=== PATIENT | male | born 2000 ===

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

== ENCOUNTER 2023-05-13 10:31 | Inpatient (IN) | payer BC ==
[~2023-05-13] VITALS: Ht 205.7 cm; Wt 72.6 kg
[~2023-05-13 10:31] MED LIST: ASPI81CH PO
--- NOTE | 2023-05-13 17:35 | NUR ---
PT ARRIVED TO 231 FROM ED ON GURNEY. TRANSFERRED W/SBA TO BED. MOM BEDSIDE. THORAVENT TO L AXIALLARY AREA. PLACED TO WALL SUCTION PER ORDERS. NO CREPITUS NOTED AT THIS TIME. LUNG SOUNDS IN ALL LOBES. PT HAS 2L 02 NC TO MOUTH FOR COMFORT. HRR. ORIENTED TO USE OF CALL LIGHT.
[2023-05-13 17:44] VITALS: BP 112/88
[2023-05-14 00:30] VITALS: BP 117/79
[2023-05-14 04:23] VITALS: BP 112/90
--- NOTE | 2023-05-14 05:14 | NUR ---
PT ALERT, O X 4. MILD PAIN RELIEVED BY ANALGESIC. VSS, RESPS EVEN & UNLABORED, CT IN SITU TO LLL. BUBBLING CEASED OVERNIGHT, PATENT. CV STABLE, PULSES STRONG, PERFUSION BRISK, WARM & DRY TO TOUCH. ABD SOFT & FLAT, BS ACTIVE. VDG PER URINAL. SKIN CLEAR WITH OLD MIDLINE SCAR. PIV TO RT ACF, FLUSHES WELL. MOTHER AT BEDSIDE ON ADMISSION. LEFT FOR THE NIGHT.
[2023-05-14 07:20] VITALS: BP 105/81
[2023-05-14 14:36] VITALS: BP 116/76
--- NOTE | 2023-05-14 16:36 | NUR ---
CHEST TUBE TO WATER SEAL AT THIS TIME PER ORDER
--- NOTE | 2023-05-14 17:10 | NUR ---
SUMMARY: ADMIT FOR PNEUMOTHORAX. NO ACUTE CHANGE TODAY. VSS, A/O, SP02 STABLE ON RA. BREATHS ARE EVEN AND UNLABORED. CT SITE IS CDI, NO NEW DRAINAGE TODAY. PT IS VOIDING AND USES CALL LIGHT. CT TO WATER SEAL, PT EDUCATED. PLAN IS FOR REPEAT CHEST X RAY IN THE MORNING.
[2023-05-14 19:18] VITALS: BP 114/74
[2023-05-15 03:16] VITALS: BP 128/79
--- NOTE | 2023-05-15 04:38 | NUR ---
SHIFT SUMMARY ALERT AND COOPERATIVE, SLEPT WELL OVERNIGHT. MINIMAL DISCOMFORT, RELIEVED BY ANALGESIC. VSS, AFEBRILE. GOOD AIR ENTRY THROUGH MOST OF LUNG HART, DIMINISHED SLIGHTLY TO LLL. NO RESP DISTRESS. CT IN SITU TO WATER SEAL. NO DRAINAGE. PINK WARM & DRY TO TOUCH. PULSES STRONG, PERFUSION BRISK. PO WELL, VDG QS. PIV TO SL. MOM VISITED IN EVENING.
[2023-05-15 07:48] VITALS: BP 112/74
[2023-05-15 14:38] VITALS: BP 108/69
--- NOTE | 2023-05-15 19:22 | NUR ---
SHIFT SUMMARY PT HAS DONE WELL T/O SHIFT. NO DRAINAGE OUT FROM CHEST TUBE TO WATER SEAL THIS SHIFT. NO CREPATIS NOTED. NO INCREASED SOB/CP. O2 SAT >95% ON RA. PT HAD REPEAT CT SCAN, DR AGUDELO WILL REVIEW RESULTS WITH PT TOMORROW.
[2023-05-15 19:40] VITALS: BP 116/70
[2023-05-16 03:52] VITALS: BP 123/88
--- NOTE | 2023-05-16 06:04 | NUR ---
SHIFT SUMMARY PT SLEPT WELL OVERNIGHT. VSS, NO DISTRESS. STATES COMFORTABLE. LEFT CT TO WATER SEAL. NO DRAINAGE. NO CREPITUS. DECREASED AIR ENTRY TO LL. PO WELL, VOIDING QS.
--- NOTE | 2023-05-16 07:45 | NUR ---
DR AGUDELO TO ROOM AT APROX 0730, CHEST TUBE REMOVED AND COVERED W/TEGADERM DRESSING, PT TOLERATED WELL. WILL REPEAT CXR AT 1200
[2023-05-16 07:58] VITALS: BP 113/61
--- NOTE | 2023-05-16 14:55 | NUR ---
DISCHARGE [facility] PT GIVEN WRITTEN AND VERBAL DC INSTRUCTIONS AND VERBALIZED UNDERSTANDING. IV REMOVED, TOLERATED WELL. DECLINED WC TO CAR. AMBULATED INDEPENDENTLY
== END 2023-05-16 14:57 | disposition home or self-care (01) | DRG 200 ==
LOC: ER 10:31 → SURS 10:33
PROVIDERS: ADMIT Surgery
PROC: 0W9B30Z Drainage of Left Pleural Cavity with Drainage Device, Percutaneous Approach (ICD-10-PCS; principal; 2023-05-13)
DX: J93.83 Other pneumothorax (principal); Q87.40 Marfan syndrome, unspecified; F17.290 Nicotine dependence, other tobacco product, uncomplicated; F10.90 Alcohol use, unspecified, uncomplicated; Z79.82 Long term (current) use of aspirin; Z98.890 Other specified postprocedural states
CPT/HCPCS: 32551; 71045; 71046; 71250; 94762; 99285-25; A9270; J3010

== ENCOUNTER 2023-06-15 09:56 | Emergency (ER) | payer BC ==
[~2023-06-15] VITALS: Ht 203.2 cm; Wt 68.0 kg
[2023-06-15 10:43] LABS: BASOPHILS ABSOLUTE AUTO 0.07 K/mm3 (0.00-0.23); BASOPHILS PERCENT AUTO 1 % (0-2); EOSINOPHILS ABSOLUTE AUTO 0.29 K/mm3 (0.00-0.68); EOSINOPHILS PERCENT AUTO 5 % (0-6); Hematocrit 48.7 % (37.0-53.0); Hemoglobin 16.7 g/dL (13.5-17.5); IMMATURE GRAN PERCENT AUTO 0 % (0-1); LYMPHOCYTES PERCENT AUTO 28 % (21-46); MONOCYTES ABSOLUTE AUTO 0.71 K/mm3 (0.16-1.47); MONOCYTES PERCENT AUTO 11 % (4-13); Mean Corpuscular HGB 31.6 pg (26.0-34.0); Mean Corpuscular HGB Conc 34.3 g/dL (31.5-36.5); Mean Corpuscular Volume 92 fL (80-100); Mean Platelet Volume 11.5 fL (9.1-12.4); NEUTROPHILS ABSOLUTE AUTO 3.53 K/mm3 (1.96-9.15); NEUTROPHILS PERCENT AUTO 55 % (41-73); Platelet Count 180 K/mm3 (150-400); RDW Coefficient Variation 12.6 % (11.7-14.2); RDW Standard Deviation 42.5 fL (35.1-46.3); Red Blood Cell Count 5.29 M/mm3 (4.30-5.90)
[2023-06-15 11:26] LABS: Albumin, Blood 4.2 g/dL (3.4-5.0); Albumin/Globulin Ratio 1.1 (0.8-1.8); Calcium, Blood 9.5 mg/dL (8.5-10.1); Globulin, Blood 3.8 g/dL (2.2-4.0); Potassium, Blood 3.6 mmol/L (3.5-5.5)
[2023-06-15 14:30] VITALS: BP 116/89
== END 2023-06-15 14:39 | disposition home or self-care (01) ==
LOC: ER 09:56
PROVIDERS: Emergency Medicine
DX: J93.9 Pneumothorax, unspecified (principal); Q87.40 Marfan syndrome, unspecified; F17.220 Nicotine dependence, chewing tobacco, uncomplicated; Z79.82 Long term (current) use of aspirin
CPT/HCPCS: 71046; 80053; 83690; 84484; 85025; 93005; 93010; 93306; 99285-25

== ENCOUNTER 2023-09-13 09:21 | Emergency (ER) | payer BC ==
[~2023-09-13] VITALS: Ht 200.7 cm; Wt 72.6 kg
[2023-09-13] MEDS ORDERED: Ketorolac Tromethamine 30mg Vial IM ONE (09:45)
[2023-09-13] MEDS ORDERED: Water 500ML With 1 PKT Castile Soap Enema PR ONE (10:50)
[2023-09-13 12:00] VITALS: BP 122/68
== END 2023-09-13 12:33 | disposition home or self-care (01) ==
LOC: ER 09:21
DX: K59.00 Constipation, unspecified (principal); F17.220 Nicotine dependence, chewing tobacco, uncomplicated; Q87.40 Marfan syndrome, unspecified; Z79.82 Long term (current) use of aspirin
CPT/HCPCS: 74019; J1885

== ENCOUNTER 2024-03-22 09:04 | Emergency (ER) | payer BC ==
[~2024-03-22] VITALS: Ht 200.7 cm; Wt 70.3 kg
[2024-03-22] MEDS ORDERED: Ketorolac Tromethamine 30mg Vial IV ONE (09:30)
[2024-03-22] MEDS ORDERED: LORazepam 2 MG/ML 1ML Injection IV ONE (10:15)
[2024-03-22 10:30] VITALS: BP 116/91
[2024-03-22] MEDS ORDERED: AMOCLA875 PO (10:50)
[2024-03-22] MEDS ORDERED: HYDROCODONE-AC1 EA10 PO (10:50)
[2024-03-22] MEDS ORDERED: IBUP600 PO (10:50)
== END 2024-03-22 11:15 | disposition home or self-care (01) ==
LOC: ER 09:04
DX: J93.83 Other pneumothorax (principal); F17.220 Nicotine dependence, chewing tobacco, uncomplicated; Z79.82 Long term (current) use of aspirin
CPT/HCPCS: 32551; 71045; 71046; 96374-59; 96375-59; 99285-25; J1885; J2060

== ENCOUNTER 2024-06-17 13:16 | Emergency (ER) | payer BC ==
[~2024-06-17] VITALS: Ht 205.7 cm; Wt 70.3 kg
[~2024-06-17 13:16] MED LIST changes: +AMOCLA875 PO; +HYDROCODONE-AC1 EA10 PO; +IBUP600 PO
[2024-06-17 13:28] VITALS: BP 138/93
[2024-06-17] MEDS ORDERED: Diphth,Pertuss(Acell),Tet Vac 0.5 ML VIAL IM ONE (13:30)
== END 2024-06-17 15:17 | disposition home or self-care (01) ==
LOC: ER 13:16
DX: S61.012A Laceration without foreign body of left thumb without damage to nail, initial encounter (principal); F17.220 Nicotine dependence, chewing tobacco, uncomplicated; W26.9XXA Contact with unspecified sharp object(s), initial encounter; Z79.82 Long term (current) use of aspirin
CPT/HCPCS: 12001; 90471; 90715; 99282-25